=== PATIENT | male | born 1990 | race Caucasian/White ===

== ENCOUNTER 2023-12-28 12:12 | Emergency (ER) | payer MEDICAID ==
[~2023-12-28] VITALS: Ht 208.3 cm; Wt 64.1 kg
[2023-12-28 13:02] VITALS: TEMP 97.4
[2023-12-28] MEDS ORDERED: MECL-302 PO (16:10)
[2023-12-28] MEDS ORDERED: HYDR-3686 PO (16:10)
[2023-12-28] MEDS ORDERED: LOPE2CAP PO (16:10)
[2023-12-28] MEDS: meclizine 12.5mg tablet PO ONE (16:21)
[2023-12-28] MEDS: loperamide 2mg capsule PO STA (16:21)
[2023-12-28] MEDS: hydrOXYzine 25 MG tablet PO STA (16:22)
[2023-12-28 16:31] VITALS: BP 127/86; PULSE 86; RESP 16; O2SAT 98
== END 2023-12-28 16:34 | disposition home or self-care (01) ==
LOC: ER 12:13
DX: F11.23 Opioid dependence with withdrawal (principal); R11.0 Nausea; R19.7 Diarrhea, unspecified; F41.9 Anxiety disorder, unspecified; Z79.899 Other long term (current) drug therapy
CPT/HCPCS: 99284; J8597; Q0177